=== PATIENT | female | born 1950 | race Caucasian/White ===

== ENCOUNTER 2023-11-02 08:06 | Inpatient (IN) | payer MEDICARE, OTHER, SELFPAY ==
--- NOTE | 2023-10-20 11:28 | CM ---
Patient is scheduled for an elective L TKR on 11/02/23. Spoke with patient prior to surgery via telephone. Patient had a L THR and R THR (both in 2020) at [facility]. Reintroduced role of Orthopedic Navigator. Patient reports that she lives
alone in a one story condo. There are no steps to enter and building is elevator accessible. She currently functions independently and uses a rollator. She also has a raised toilet seat, hip kit and shower seat. She had VN services through VN.
PCP is Dr. Srinath Le.
Discussed orthopedic program and post surgical plans. Reviewed anticipated length of stay and that goal is for her to return home at discharge. Also reviewed outpatient PT. Patient is in agreement with tentative plan and but will not have
transportation for outpatient PT. She will again need VN services and is requesting VN (PAC data reviewed). She states that her children will stay with her for a few days.
Patient will complete online education.
Plan: Orthopedic Navigator will remain available to assist with the care of patient and will reassess discharge needs after surgery.
[2023-10-24 06:46] VITALS: BMI 38.5
--- NOTE | 2023-10-24 07:34 | HPS.HSE ---
Family Physician
-
Family Physician: Srinath Le
Chief Complaint
-
Advanced primary osteoarthritis of the left knee.
History of Present Illness
The patient is a 73-year-old female presenting today for advanced primary osteoarthritis of the left knee. The patient previously underwent an uncomplicated right total hip arthroplasty in December 2020 and a left total hip arthroplasty in
February [address] Michael Dejesus. She returns to [facility] today with complaints of significant left knee pain associated with her osteoarthritis. She notes that her current left knee pain is greatly interfering with her activities of
daily living and is overall impacting her quality of life. She has tried and failed multiple conservative treatment measures in the past for her left knee pain. These conservative treatment measures include physical therapy, self-directed
therapeutic exercises, attempted medical management with Tylenol and NSAIDs, and the application of ice and/or heat. Recent x-ray findings of the left knee revealed advanced lateral joint space narrowing of the patellofemoral joint. She was
determined to be in need of a left total knee arthroplasty. She denies any current complaints today such as chest pain, shortness of breath at rest, palpitations, nausea, vomiting, diarrhea, lightheadedness, dizziness, cough, sore throat, or fever.
Medical History
Past Medical History
Past Medical History: Reports Other
Additional Past Medical History:
1. Osteoarthritis, status post right total hip arthroplasty, 12/2020, and left total hip arthroplasty, 02/2021, by Dr. Michael Dejesus.
2. Hypertension.
3. Hyperlipidemia.
4. Obstructive sleep apnea, noncompliant with CPAP.
5. Chronic dyspnea on exertion, secondary to deconditioning.
6. 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
7. GERD.
8. Diverticulosis.
9. Irritable bowel syndrome.
10. Balance difficulties.
11. Migraines.
12. Uterine cancer, >20 years ago, status post hysterectomy.
13. Overactive bladder.
14. Recurrent cellulitis, 11/2022-08/2023, treated with Doxycycline.
15. Anxiety.
16. Depression.
17. Obesity, BMI 38.5.
Past Surgical History: Reports Other
Additional Past Surgical History:
1. Left total hip arthroplasty, 02/2023, by Dr. Michael Dejesus.
2. Right total hip arthroplasty, 12/2020, by Dr. Michael Dejesus.
3. Total abdominal hysterectomy.
4. Partial vulvectomy.
5. Bilateral cataract extraction.
6. Tonsillectomy and adenoidectomy.
Social History
Tobacco: Non-smoker
Alcohol: Other (Rare. )
Living: Alone (in a 1 story condo. She will be staying at her daughter's home for 3 days post-operatively. )
Family History
Family History: Not pertinent
Allergies / Home Medications
Allergy/Medication List:
MEDICATIONS:
1. Wanda 1 capsule p.o. daily.
2. Meloxicam 15 mg p.o. daily.
3. Simvastatin 10 mg p.o. at bedtime.
4. Centrum Silver multivitamin one tablet p.o. daily.
5. Metformin 500 mg p.o. twice a day.
6. Losartan/Hydrochlorothiazide 100/25 mg p.o. daily.
7. Lansoprazole 15 mg p.o. daily.
8. Probiotic one tablet p.o. daily.
9. Escitalopram Oxalate 10 mg p.o. daily.
10. Cholecalciferol 1000 units p.o. daily.
11. Calcium citrate 600 mg p.o. daily.
12. Aller-Jayson two sprays nasal every evening.
ALLERGIES: Ciprofloxacin. Dipyridamole.
Review of Systems
-
A 12 point ROS was completed and negative except as noted: Yes
Physical Exam
Vital Signs
Blood pressure 122/64. Heart rate 70. Respirations 18. Pulse ox 95%.
Height 5 feet, 4.5 inches. Weight 103.3 kg. BMI 38.5.
Physical Exam
General: Well Developed, Well Nourished and No Apparent Distress
HEENT: NormoCephalic, Moist mucous membranes, Atraumatic and PERRLA
Respiratory: Clear
Cardiac: Regular Rhythm
GI: Soft, Non Tender, Non Distended and Other (Obese. )
Musculoskeletal: Other (Left knee and lower extremity: Valgus alignment. Mild effusion. Range of motion 0-130. Tenderness to palpation of medial tibial surface. Able to preform straight left raise. )
Skin: Warm and Dry
Neuro: AO x 3 and No Motor Deficits
Laboratory Results
-
DIAGNOSTIC STUDIES as of 10/24/2023: White blood cell count 7.7. Hemoglobin 13.6. Platelet count 255,000. Sodium 139. Potassium 4.4. BUN 21.Creatinine 0.8. Glucose 134. Hemoglobin A1c 6.3. Calcium 10.2. AST 28. ALT 19. Albumin 4.2. MRSA nasal screen
negative.
EKG 10/24/2023: Normal sinus rhythm. Compared to the prior EKG of 12/12/2020, no significant change was found.
Impression/Plan
-
CLEARANCES:
1. Primary medical, Dr. Srinath Le, cleared.
Primary medical phone number: [phone].
2. Dental waived.
IMPRESSION/PLAN:
1. Advanced primary osteoarthritis of the left knee in need of a left total knee arthroplasty by Dr. Michael Dejesus on 11/02/2023. The benefits and risks of the procedure have been explained to the patient. The patient understands these risks and
wishes to proceed.
2. DVT prophylaxis: Aspirin with bilateral venous compression devices.
3. Pain management: We will utilize Tramadol for moderate to severe post-operative pain and Meloxicam. The patient tolerated this medication regimen well with her prior right and left total hip arthroplasty. Pain medications will be adjusted as
indicated.
4. Balance difficulties: The patient will be placed on fall precautions post-operatively.
Patient's home phone number: [phone].
Patient's cell phone number: [phone].
Patient's contact (Meseret Jett - Daughter): [phone] (H); [phone] (C).
[2023-10-24 09:10] LABS: Hematocrit 40.6 % (37.0-47.0); Hemoglobin 13.6 g/dL (12.0-16.0); Mean Corp Hgb Conc. 33.5 g/dL (33.0-37.0); Mean Corpuscular Hgb 31.9 pg (27.0-31.0); Mean Corpuscular Volume 95.3 fL (81.0-99.0); Mean Platelet Volume 10.5 fL (7.4-10.4); Platelet Count 255 10^3/uL (130-400); Red Blood Cell Count 4.26 10^6/uL (4.20-5.40); Red Cell Dist. Width 13.4 % (11.5-14.5); White Blood Cell Count 7.7 10^3/uL (4.8-10.8)
[2023-10-24 09:31] LABS: AST (SGOT) 28 U/L (14-36); Albumin 4.2 g/dl (3.5-5.0); Blood Urea Nitrogen 21 mg/dl (7-17); Calcium 10.2 mg/dl (8.4-10.2); Carbon Dioxide 28 mmol/L (22-30); Estimated Creatinine Clearance 72 ml/min; Glucose 134 mg/dl (70-99); Potassium 4.4 mmol/L (3.5-5.1); Total Bilirubin 0.6 mg/dl (0.2-1.3); Total Protein 6.7 g/dl (6.3-8.2); eGFR > 60.00
[2023-10-24 09:39] LABS: ALT (SGPT) 19 U/L (0-35); Alkaline Phosphatase 67 U/L (38-126); Chloride 100 mmol/L (98-107); Sodium 139 mmol/L (135-145)
[2023-10-24 12:10] LABS: Glycohemoglobin (HgbA1c) 6.3 % (4.0-5.6)
[2023-10-24 15:15] VITALS: BMI 38.5
[2023-11-02] VITALS (14 sets, daily range): BP systolic 111–144; BP diastolic 45–86; BMI 38.5
[2023-11-02 09:20] LABS: Glucose - Point of Care 120 mg/dl (70-99)
[2023-11-02] MEDS: CELEBREX 200 MG PO (09:22)
[2023-11-02] MEDS: TYLENOL 650 MG PO ×3 (09:23→20:10)
[2023-11-02] MEDS: NORMOSOL-R 1000 IV ×2 (09:23→14:08)
--- NOTE | 2023-11-02 12:45 | OR.RPT ---
Operative Report
Operative Report
Orthopaedic Surgery Operative Note
DATE OF OPERATION: 11/02/2023
PREOPERATIVE DIAGNOSES: Osteoarthritis, left knee.
POSTOPERATIVE DIAGNOSES: Osteoarthritis, left knee.
OPERATION PERFORMED:
1) Left total knee arthroplasty (CPT 34691 with 22 modifier)
2) Intraosseous administration of analgesic (CPT 59535)
SURGEON: Michael Dejesus MD
ASSISTANTS: Bailee Ramirez PA-C who helped with patient and limb positioning and retraction
ANESTHESIA: Spinal by anesthesia plus intraoperative infusion of morphine into the tibial metaphysis by Dr. Dejesus
COMPLICATIONS: None.
ESTIMATED BLOOD LOSS: 20mL
DRAINS: None
TOURNIQUET TIME: 51 minutes.
IMPLANTS:
- Lary Persona CR Femur, size 10
- Lary Persona tibia base plate, size E
- Lary Persona tibial stem, 40mm
- Lary Persona ultracongruent articular surface, 12 mm
- All-polyethylene patellar component, size 32
- DJO Irwin bone cement
INDICATIONS: The patient presented to my office with debilitating left knee pain due to osteoarthritis. We reviewed the natural history of this problem, as well as the risks, benefits, and alternatives of various treatment options. The patient
exhausted all nonoperative treatment options and wished to proceed with knee replacement surgery. The patient understood the risks which included, but were not limited to, bleeding, infection, failure to relieve pain, more pain than preop, damage to
blood vessels and nerves, need for reoperation, mechanical failure of the implants, wound healing problems, stiffness, instability, blood clot, pulmonary embolism, myocardial infarction, pneumonia, arrhythmia, CVA, and . The patient accepted
these risks and wished to proceed. All questions were answered, and informed consent was obtained.
PROCEDURE IN DETAIL: The patient was identified in the preoperative holding area. The left knee was identified as the operative site. The patient was taken in the operating room and placed in a supine position on the operating table. Spinal/General
anesthesia was performed. IV antibiotics and tranexamic acid were administered. An SCD was placed on the right lower extremity. A well-padded tourniquet was placed on the proximal thigh. All bony prominences were well padded. The left lower
extremity was prepped and draped in the usual sterile fashion.
We performed a surgical time-out. An interarticular block was performed with local anesthetic with epinephrine. I performed interosseous administration of morphine-saline solution via a Jamshidi style intraosseous needle into the proximal medial
tibial metaphysis as described by Víctor Arboleda MD. This was performed to aid in pain control. The limb was exsanguinated with an Esmarch bandage, then the tourniquet was inflated to 250 mmHg. A midline skin incision was made followed by a medial
parapatellar arthrotomy. A subperiosteal peel was performed on the medial tibia. I excised part of the infrapatellar fat pad to improve our visualization as well as tissue over anterior femur. The patella was everted and the knee was flexed. I
excised the remnants of the anterior and posterior cruciate ligaments as well as tibial and femoral osteophytes with rongeurs.
The knee was flexed, and the extramedullary tibial cutting guide was aligned. [place] was aligned at neutral, rotation was centered on the tibial tubercle, and coronal alignment was aligned with the mechanical axis of the tibia and center of the ankle
joint. The cut height was 10mm off the lateral tibia joint surface. The guide was secured into place. The MCL and LCL were protected. The tibia surface was cut. The cut surface was inspected after removal to ensure appropriate height and slope based
on the preoperative plan. The cut was checked with a drop francisco. It was centered nicely at the ankle.
A drill was used to open the femoral canal. The intramedullary distal femoral cutting guide was inserted into the femur. This was set at 5 degrees +0. This was secured into place with three pins. The cut level was checked with an elena wing. The
distal femur was cut through the cutting guide. The IM guide was reinserted to double check that the level of resection was flush and in appropriate alignment.
Clinton�s line and the transepicondylar axis were marked on the femur. The femoral sizing guide was applied to the anterior femur. Pins were inserted, and the 4-in-1 cutting guide was applied and secured into place. The rotation was compared to
Clinton�s line, the transepicondylar axis, and the neutral tibia cut and was found to be appropriate. The width was checked and found to be appropriate and lateralized on the femur. The anterior, posterior, and chamfur cuts were made. A lamina
community service organization director was used to open the flexion gap, and posterior osteophytes were removed with a curved osteotome. The remnant medial and lateral meniscus were also removed. I prophylactically cauterized the lateral geniculate arteries. A 10mm spacer block
was applied to the flexion gap and was noted to be balanced medially and laterally. The knee was extended, and the block showed symmetric to extension and flexion gaps.
The tibia was exposed and sized. Rotation was set in line with the tibial tubercle and congruent with the femur. The trial was secured into place with two pins. The trial femur was impacted into place, and a trial articular surface was placed. The
knee was taken through range of motion and noted to be stable throughout the arc of motion without gaping or excess tension. In extension, a measured resection of the patella was performed. The patella was sized, and lug holes were drilled. A trial
patella component was applied, and it was noted to track centrally throughout the arc of motion without need for further releases.
The trials were removed. The tibia keel was prepared with the punch and the drill. The bone surfaces were irrigated with sterile saline and dried. The cement was mixed in a vacuum mixer. Cement gun was used to apply cement to the tibial surface and
the undersurface of the tibial implant. Cement was pressurized into the tibial canal and tibia surface. The tibial component was impacted into place. Excess cement was removed. Cement was applied to the femoral surface and the femoral component. The
femoral component was impacted into place, and excess cement removed. A trial articular surface was inserted, and the knee was extended while the cement polymerized. The tourniquet was let down, and meticulous hemostasis was achieved. Dilute
betadine was poured into the wound and allowed to soak for 3 minutes. The knee was irrigated with copious normal saline.
Once the cement was polymerized, the trial articular surface was removed. Any excess cement was removed. The knee was trialed, and the final articular surface was selected and inserted into the tibial locking mechanism. The knee was reduced. A fresh
drape was applied to the surgical field.
The arthrotomy was closed with 0-PDS. Once closed, an interarticular block was performed with local anesthetic with epi. The deep dermal layer was closed with 2-0 PDS, and the subcuticular skin was closed with 3-0 monocryl. A Dermabond Prineo
dressing was applied to the skin in full flexion. Once this was completely dry, a sterile waterproof dressing was applied.
The anesthesia team performed an adductor canal block in the OR. The patient awoke from anesthesia without any difficulties. The sponge and instrument counts were correct x2 at the end of the case.
Of note, 22 modifer was added for complexity due to BMI >35 kg/m2 which added 20 additional minutes for positioning, exposure, and implanting the components.
Aditya Dejesus MD
[2023-11-02 13:15] LABS: Glucose - Point of Care 142 mg/dl (70-99)
[2023-11-02] MEDS: ULTRAM 50 MG PO (13:49)
[2023-11-02] MEDS: DILAUDID 0.25 MG IV (14:17)
--- NOTE | 2023-11-02 14:18 | W.PN.UPDATE ---
Update Note
Progress Note Update
L knee OA s/p L TKA w/ Dr Dejesus 11/02/23
- s/p R MIRIAM, 12/2020, and L MIRIAM, 02/2021, by Dr Dejesus
DVT prophylaxis - ASA, b/l venous foot pumps
HTN - + parameters - monitor BP
SPARKLE, noncompliant with CPAP, and chronic PAUL, secondary to deconditioning - monitor O2
- IS
- Add supplemental O2 HS
Non-insulin dependent diabetes with neuropathy, A1c 6.3 - monitor BS
- Resume Metformin
- SSI AC during admission
GERD - continue PPI therapy
Balance difficulties - on fall precautions
Hyperlipidemia
Diverticulosis
Irritable bowel syndrome
Migraines
Uterine cancer, >20 years ago, status post hysterectomy
Overactive bladder
Recurrent cellulitis, 11/2022-08/2023, treated with Doxycycline
Anxiety
Depression
Obesity, BMI 38.5
--- NOTE | 2023-11-02 15:00 | PTCARENOTE ---
Patient received from PACU in bed; IVF infusing; Surgical site assessed with AXLE TURNER; Left knee mepilex clean, dry, and intact; Bilateral pedal pulses +2; Patient denies numbness and/or tingling to lower extremities; Patient states pain is a four
out of ten and is tolerable for her; Denies nausea/vomiting; Bed in lowest position, wheels locked; Call fernandez within reach; Daughter at bedside; Assessment ongoing
[2023-11-02] MEDS: HYZAAR 100-25 TABLET PO (15:07)
[2023-11-02] MEDS: NOVOLOG FLEXPEN-MODERATE RESISTANCE SC (15:08)
[2023-11-02] MEDS: PROTONIX 40 MG PO (15:38)
[2023-11-02 15:56] LABS: Glucose - Point of Care 180 mg/dl (70-99)
[2023-11-02] MEDS: NOVOLOG FLEXPEN-MODERATE RESISTANCE 1 UNITS SC (15:56)
[2023-11-02] MEDS: VITAMIN D3 (cholecalciferol) 25 MCG PO (15:56)
[2023-11-02] MEDS: LEXAPRO 10 MG PO (15:57)
[2023-11-02] MEDS: VISBIOME 1 CAP PO (15:57)
[2023-11-02] MEDS: GLUCOPHAGE 500 MG PO (16:00)
[2023-11-02] MEDS: ASPIRIN 325 MG PO (17:23)
[2023-11-02] MEDS: ANCEF 5 IV (18:20)
[2023-11-02] MEDS: TORADOL 10 MG IV (20:10)
[2023-11-02] MEDS: BACTROBAN 2% OINTMENT 1 APPLIC NASAL (21:00)
[2023-11-02 21:45] LABS: Glucose - Point of Care 181 mg/dl (70-99)
[2023-11-02] MEDS: LIPITOR 10 MG PO (22:40)
[2023-11-03] MEDS: TYLENOL PO ×2 (00:35→04:57)
[2023-11-03] MEDS: TYLENOL 650 MG PO ×3 (00:51→11:17)
[2023-11-03] MEDS: ANCEF 5 IV (02:10)
[2023-11-03 03:00] VITALS: BP 153/68
--- NOTE | 2023-11-03 03:20 | PTCARENOTE ---
Patient was able to ambulate w RW and assist x1 to toilet without any issues. No c/o pain after ambulation. Assessment ongoing.
[2023-11-03] MEDS: NOVOLOG FLEXPEN-MODERATE RESISTANCE SC (07:22)
[2023-11-03 07:23] LABS: Glucose - Point of Care 148 mg/dl (70-99)
[2023-11-03] MEDS: GLUCOPHAGE 500 MG PO (07:38)
[2023-11-03] MEDS: MOBIC 15 MG PO (07:38)
[2023-11-03] MEDS: VISBIOME 1 CAP PO (07:38)
[2023-11-03] MEDS: VITAMIN D3 (cholecalciferol) 25 MCG PO (07:38)
[2023-11-03] MEDS: ASPIRIN 325 MG PO (07:38)
[2023-11-03] MEDS: LEXAPRO 10 MG PO (07:38)
[2023-11-03] MEDS: PROTONIX 40 MG PO (07:38)
[2023-11-03] MEDS: HYZAAR 100-25 TABLET 1 TAB PO (07:39)
[2023-11-03] MEDS: BACTROBAN 2% OINTMENT 1 APPLIC NASAL (07:40)
[2023-11-03] MEDS: ULTRAM 50 MG PO ×2 (07:44→12:07)
[2023-11-03 08:00] VITALS: BP 131/78
--- NOTE | 2023-11-03 08:49 | CM ---
Addendum entered by Sarah Marks 11/03/23 09:42:
[place] text received from Dr. Dejesus that patient can wait until Tuesday, 11/06 to begin VN services.
Original Note:
Reviewed chart and held rounds with PT, OT and nursing. Patient admitted as planned for elective L TKR. Met with patient at bedside. Confirmed information previously obtained for assessment. Also discussed discharge plans. Patient will be going to
her daughter's home until Tuesday (she will have a first floor set up with one step to enter). She will have support from multiple family members. Reviewed VN services including start of care (tentatively 11/03), services to be ordered (PT, SN, TRANSPORTATION WORKER)
and frequency/duration of services. Options list provided and PAC data reviewed. Patient selects VN. Explained to patient that VN does not go to [place] where her daughter lives. Patient requested that start of care be deferred until Tuesday,
11/06. Africa Shannon, PAC updated and in agreement. [place] text sent to Dr. Dejesus with update.
Patient has all needed DME at home.
VN referral was completed and sent to [facility] through [employer] with request for start of care on 11/06. Confirmation received of their ability to accept case. hospital television rental clerk to fax discharge instructions to [facility] when complete.
Patient will use [facility] pharmacy for discharge prescriptions.
[2023-11-03 11:15] VITALS: BP 117/68; PULSE 73; O2SAT 93
[2023-11-03 11:35] VITALS: BP 138/60
--- NOTE | 2023-11-03 12:03 | W.PN.ORTHO ---
Today's Communication / Plan
-
Await PT and OT recs.
D/c later today if remaining clinically stable.
Assessment
.
Distal Motor Intact: Yes
Dressing:
Clean, dry and intact.
Assessment:
L knee OA s/p L TKA w/ Dr Dejesus 11/02/23
- s/p R MIRIAM, 12/2020, and L MIRIAM, 02/2021, by Dr Dejesus
DVT prophylaxis - ASA, b/l venous foot pumps
HTN - + parameters - BPs stable
SPARKLE, noncompliant with CPAP, and chronic PAUL, secondary to deconditioning - O2 stable on RA by POD 1
- IS
- Added supplemental O2 HS during admission
Non-insulin dependent diabetes with neuropathy, A1c 6.3 - BS readings overall stable w/ resumption of home Metformin, minimal SSI AC during admission
GERD - continue PPI therapy
Balance difficulties - on fall precautions
Hyperlipidemia
Diverticulosis
Irritable bowel syndrome
Migraines
Uterine cancer, >20 years ago, status post hysterectomy
Overactive bladder
Recurrent cellulitis, 11/2022-08/2023, treated with Doxycycline
Anxiety
Depression
Obesity, BMI 38.5
Plan
.
Surgery / Date: L TKA w/ Dr Dejesus 11/02/23
DVT Prophylaxis: Aspirin
Activity:
Out of bed.
PT/OT
Discharge Plan: Home w/ VN
Subjective
.
.:
Patient resting comfortably in her chair this AM.
L knee pain overall well controlled w/ Tramadol as needed. Oxycodone not taken.
Denies any new significant complaints.
Eager for potential d/c today.
Vital Signs and Labs
.
Vital Signs and Labs:
Lab Results
10/24/23 06:38
10/24/23 06:38
Temp Pulse Resp BP Pulse Ox
98.6 F 73 17 138/60 95
11/03/23 11:35 11/03/23 11:35 11/03/23 11:35 11/03/23 11:35 11/03/23 11:35
Non-invasive Hgb result: 13
Physical Exam
-
HEENT: No pallor, cyanosis, or jaundice. Throat clear.
NECK: Supple. No JVD.
RESPIRATORY: Lungs clear to auscultation.
CVS: S1, S2 normal. RRR.�
ABDOMEN: Soft, non-tender. No distension. Obese.
EXTREMITIES: Post-surgical L knee edema. Strength equal, no calf pain with palpation/dorsiflexion. Calves soft.
CHORE WORKER: AOx3. No focal deficits. remarketing rep grossly intact
--- NOTE | 2023-11-03 12:21 | W.DS.TRANS ---
DC Summary - Vocal Music Teacher
-
Discharge Instructions:
Sleep Apnea Risk Intermediate
Discharge Diagnosis/Procedures L knee OA s/p L TKA w/ Dr Dejesus 11/02/23
Diet Diabetic, Carb Controlled
Activity As tolerated,With Walker
Driving Restrictions Not until seen by your Dr
Bathing Restrictions OK to Shower
Other Services VN,PT
Wound Care Leave dressing on until seen by surgeon's office
for follow-up in 2 weeks.
Instructions:
Stand-Alone Forms: Total Hip/Knee Replacement D/C
Changes to Home Medications: Yes
Discharge Medications:
DC Medications w/original date entered in [employer]
escitalopram oxalate 10 mg tablet 10 mg PO DAILY Depression 12/10/20
metformin 500 mg tablet 500 mg PO BID Diabetes 12/10/20
qrutabnn-try-avfom acid 0.4 mg-lycopene 300 mcg-lutein 250 mcg tablet (Centrum Silver) 1 ea PO DAILY Supplement 12/10/20
simvastatin 10 mg tablet 10 mg PO HS High cholesterol 12/10/20
Allerflo 2 spray intranasal QPM Congestion 12/12/20
L.acidoph, paracasei,B. lactis 10 billion cell capsule 1 ea PO DAILY probiotic 12/12/20
calcium citrate 200 mg (950 mg) tablet 600 mg PO DAILY Supplement 12/12/20
cholecalciferol (vitamin D3) 25 mcg (1,000 unit) tablet 1,000 units PO DAILY Supplement 12/12/20
lansoprazole 15 mg delayed release,disintegrating tablet 15 mg PO DAILY Gastrointestinal issue 12/12/20
Wanda 1 cap PO DAILY 10/21/23
mupirocin 2 % topical ointment 1 applic intranasal BID #1 tube 10/24/23
acetaminophen 500 mg tablet (Tylenol Extra Strength) 1,000 mg (2 x 500 mg) PO Q6H #60 tabs 11/03/23
aspirin 325 mg tablet 325 mg PO DAILY #30 tabs 11/03/23
docusate sodium 100 mg capsule 100 mg PO BID #30 caps 11/03/23
losartan 100 mg-hydrochlorothiazide 25 mg tablet 1 tab PO DAILY #0 tabs 11/03/23
meloxicam 15 mg tablet 15 mg PO DAILY #30 tabs 11/03/23
prochlorperazine maleate 5 mg tablet 5 mg PO Q8H PRN nausea and vomiting #30 tabs 11/03/23
sennosides 8.6 mg tablet (Senna Laxative) 17.2 mg (2 x 8.6 mg) PO BID #30 tabs 11/03/23
tramadol 50 mg tablet 50 mg PO Q6H PRN moderate-severe pain #30 tabs 11/03/23
Home Medication Changes
acetaminophen 500 mg tablet (Tylenol Extra Strength) 1,000 mg (2 x 500 mg) PO Q6H #60 tabs 11/03/23
aspirin 325 mg tablet 325 mg PO DAILY #30 tabs 11/03/23
docusate sodium 100 mg capsule 100 mg PO BID #30 caps 11/03/23
meloxicam 15 mg tablet 15 mg PO DAILY #30 tabs 11/03/23
prochlorperazine maleate 5 mg tablet 5 mg PO Q8H PRN nausea and vomiting #30 tabs 11/03/23
sennosides 8.6 mg tablet (Senna Laxative) 17.2 mg (2 x 8.6 mg) PO BID #30 tabs 11/03/23
tramadol 50 mg tablet 50 mg PO Q6H PRN moderate-severe pain #30 tabs 11/03/23
Pending Results: Yes (Hep C antibody)
[2023-11-03 19:12] LABS: Hepatitis C Antibody Negative (Negative)
== END 2023-11-03 13:19 | disposition home health service (06) | DRG 470 ==
LOC: 2 SOUTH 08:06
PROVIDERS: ADMITTING PHYSICIAN Orthopaedic Surgery; FAMILY PHYSICIAN Family Medicine
PROC: 0SRD0J9 Replacement of Left Knee Joint with Synthetic Substitute, Cemented, Open Approach (ICD-10-PCS; 2023-11-02)
DX: M17.12 Unilateral primary osteoarthritis, left knee (principal); I10 Essential (primary) hypertension; E78.5 Hyperlipidemia, unspecified; G47.33 Obstructive sleep apnea (adult) (pediatric); E11.40 Type 2 diabetes mellitus with diabetic neuropathy, unspecified; K21.9 Gastro-esophageal reflux disease without esophagitis; G43.909 Migraine, unspecified, not intractable, without status migrainosus; N32.81 Overactive bladder; F41.9 Anxiety disorder, unspecified; R06.09 Other forms of dyspnea; F32.A Depression, unspecified; E66.9 Obesity, unspecified; Z68.38 Body mass index [BMI] 38.0-38.9, adult; Z96.643 Presence of artificial hip joint, bilateral; Z79.84 Long term (current) use of oral hypoglycemic drugs; Z91.199 Patient's noncompliance with other medical treatment and regimen due to unspecified reason
CPT/HCPCS: 73560; 80053; 82962; 83036; 85027; 86803; 87070; 93005; 97110; 97116; 97162; 97166; 97530; 97535

== ENCOUNTER 2025-05-11 23:11 | Emergency (ER) | payer MEDICARE, OTHER, SELFPAY ==
[2025-05-11 23:23] VITALS: BP 170/93
[2025-05-12 00:24] LABS: ALT (SGPT) 26 U/L (0-35); AST (SGOT) 29 U/L (14-36); Albumin 4.2 g/dl (3.5-5.0); Alkaline Phosphatase 74 U/L (38-126); Blood Urea Nitrogen 27 mg/dl (7-17); Calcium 9.6 mg/dl (8.4-10.2); Carbon Dioxide 28 mmol/L (22-30); Chloride 103 mmol/L (98-107); Glucose 136 mg/dl (70-99); Potassium 4.5 mmol/L (3.5-5.1); Sodium 138 mmol/L (135-145); Total Protein 6.8 g/dl (6.3-8.2); eGFR > 60.00
[2025-05-12 00:37] LABS: Troponin I < 0.012 ng/ml
[2025-05-12 02:58] VITALS: BP 137/66
[2025-05-12 03:00] VITALS: BP 122/67
[2025-05-12 03:03] VITALS: BMI 39.0
[2025-05-12 03:16] LABS: Hematocrit 40.6 % (37.0-47.0); Hemoglobin 13.8 g/dL (12.0-16.0); Mean Corp Hgb Conc. 34.0 g/dL (33.0-37.0); Mean Corpuscular Volume 92.9 fL (81.0-99.0); Nucleated Red Blood Cells % 0 %; Platelet Count 224 10^3/uL (130-400); Red Cell Dist. Width 12.6 % (11.5-14.5)
--- NOTE | 2025-05-12 03:44 | ED.GENMED ---
History of Present Illness
General
Chief Complaint: Chest Pain
Source: patient
Time Seen by Provider: 05/12/25 03:37
History of Present Illness
History of Present Illness:
This patient is a 75-year-old female who presents emergency department with 3 to 4-day history of indigestion and belching. She denies associated anorexia, abdominal pain, vomiting, fever, chills. Today, she got particularly concerned because she
developed about a 15-minute period of 'irregular heartbeat' associated with chest 'tightness'. This spontaneously resolved and she is now asymptomatic. She has had mild nausea over the last few days. She denies back pain, urinary symptoms, new
dyspnea, cough, sore throat, rhinorrhea, or other complaints.
Past History
Past History
ED Past Medical History: Other (Diabetes, hypertension, hypercholesterolemia, reflux, uterine cancer)
ED Past Surgical History: Gynecological and Tonsilectomy
Social History
Tobacco: Non-smoker
Alcohol: Occasional
Drug: None
Living: alone
Phy Exam
Physical Exam
Physical Exam:
GENERAL: Alert , in no apparent distress
EYE: pupils equal and reactive
NECK: Supple, no significant adenopathy.
ENT: o/p clr, mmm.
CARDIAC: Regular rate and rhythm .
LUNGS: Clear breath sounds bilaterally, no acute respiratory distress, no wheezes/rales/rhonchi
ABDOMEN: Soft, without focal tenderness, no r/g, no cvat
NEUROLOGICAL: Alert and oriented, no focal neuro deficits
SKIN: Warm and dry, skin intact.
MUSCULOSKELETAL: No edema, well perfused.
PSYCH: Normal and appropriate interaction.
Scores
Heart Score for Chest Pain Patients
STEMI patient?: Not applicable
Course
Orders/Labs/Results
Orders:
Orders
05/11/25 23:13
Electrocardiogram (*1) Urgent
Reason for Study: Other
Other Reason for Exam: Respiratory Distress
Cardiac Monitoring- Treatment ONCE
EKG- Treatment ONCE
IV Insert/Care/Rem.- Treatment PRN
Comprehensive Metabolic Panel Urgent
NT-proBNP Urgent
Troponin I Urgent
O2 Therapy [RESP] Urgent
Titrate/Wean O2 to maintain O2 sat greater than (%): 93
Special Instructions: TO MAINTAIN CONTINUOUS O2 SATS >/= 93%
Pulse Ox/cont/shift [RESP] Urgent
Quantity: 1
Special Instructions: continuous pulse ox
05/12/25 00:10
CR Chest - 2 Views Urgent
Reason For Exam: respiratory distress
05/12/25 03:02
Complete Blood Count/With Diff Urgent
Troponin I Urgent
Abnormal Lab Results
05/12/25 05/12/25
00:02 03:02
WBC 11.0 H 10^3/uL
(4.8-10.8)
MCH 31.6 H pg
(27.0-31.0)
Absolute Neuts (auto) 6.8 H 10^3/uL
(1.4-6.5)
Absolute Monos (auto) 0.9 H 10^3/uL
(0.1-0.6)
BUN 27 H mg/dl
(7-17)
Glucose 136 H mg/dl
(70-99)
05/12/25 03:02
05/12/25 00:02
Vital Signs
Initial and Last Documented VS:
Initial Vital Signs
Temp Pulse Resp BP Pulse Ox
97.6 F 70 20 170/93 95
05/11/25 23:23 05/11/25 23:23 05/11/25 23:23 05/11/25 23:23 05/11/25 23:23
Last Documented Vital Signs
Temp Pulse Resp BP Pulse Ox
97.6 F 61 17 118/55 91
05/11/25 23:23 05/12/25 04:00 05/12/25 04:00 05/12/25 04:00 05/12/25 04:00
*Pulse Oximetry
SaO2: 95
Oxygen Mode of Delivery: Room air
Patient hypoxic: no
*Critical Care Note
Total Time (30-74mins, 75-104mins- exclusive of procedures): Not Applicable
Update Note
Update Note:
Patient presents to the Emergency Department with ___palpitations and chest discomfort
Number and Complexity of Problems Addressed at the Encounter
� Chronic conditions affecting care:
� Acute Exacerbation and/or Progression of Chronic Illness:
� Differential Diagnosis includes: But not limited to SVT, PVCs, A-fib, a flutter, ACS, PE, electrolyte disorder, etc. etc.
Amount and/or Complexity of Data to be Reviewed and Analyzed
� I performed an independent evaluation of and my interpretation is:
EKG: Read by me, normal sinus rhythm, normal rate, normal axis, no acute ischemia
CT:
Xrays: Read by me, NAD, no cardiomegaly, no effusion
Laboratory Studies: Generally unremarkable, minimal nonspecific white blood cell count elevation
Other:
� Review of other/old records reveals:
� Clinical information was obtained by an independent historian:
� Prescriptions/Medications Considered but not given:
� Further testing considered but not performed:
Risk of Complications and/or Morbidity or Mortality of Patient Management
� Social determinants of health affecting care:
� Discussion with other providers (PCP, Hospitalists, Consultants, etc):
� Escalation of care including admission/observation vs risk of discharge considered: Patient with palpitations and chest tightness, now pain-free. Repeat troponin pending. Highly doubt ACS given nonspecific/atypical symptoms
and unremarkable ECG and first troponin. Patient may have had a benign arrhythmia/PVCs, no evidence of rhythm disturbance at this time. Highly doubt PE as patient denies risk factors such as smoking, recent immobilization, recent trauma, leg
swelling, family history, etc. etc. Patient denies pleuritic chest pain or dyspnea. Patient will likely be stable for discharge with close cardiology follow-up.
ED Attending Note
-
Portions of this chart may have been created with voice recognition software.� Occasional wrong word or��sound alike� substitutions may have occurred due to the inherent limitations of voice recognition software.
Discharge Plan
Departure
Patient Disposition: Home (Routine Discharge)
Patient with high blood pressure during this ER visit?: Yes
Condition: Good
Discharge Problem:
Chest pain, Heart palpitations
Instructions: Palpitations, Chest Pain NON-[facility] F[employer] Access[employer] Maker Follow Up, BLOOD PRESSURE
Prescriptions:
No Action
metformin 500 MG tablet
500 mg PO BID
simvastatin 10 MG tablet
10 mg PO HS
escitalopram oxalate 10 MG tablet
10 mg PO DAILY
Centrum Silver 1 EACH tablet
1 ea PO DAILY
Allerflo
2 spray intranasal QPM
calcium citrate 200 MG tablet
600 mg PO DAILY
lansoprazole 15 MG tablet,disintegrat, delay rel
15 mg PO DAILY
cholecalciferol (vitamin D3) 1,000 UNITS tablet
1,000 units PO DAILY
L.acidoph,paracasei,B.animalis 1 EACH capsule
1 ea PO DAILY
Wanda
1 cap PO DAILY
mupirocin 2 % ointment
1 applic intranasal BID Qty: 1 0RF
Rx Instructions:
Already has previously.
aspirin 325 mg Tablet
325 mg PO DAILY Qty: 30 0RF
Rx Instructions:
Take daily x4 weeks for blood clot prevention.
prochlorperazine maleate 5 mg Tablet
5 mg PO Q8H PRN (Reason: nausea and vomiting) Qty: 30 0RF
docusate sodium 100 mg Capsule
100 mg PO BID Qty: 30 0RF
meloxicam 15 mg Tablet
15 mg PO DAILY Qty: 30 0RF
Rx Instructions:
Take with food.
DO NOT take within 2 hours of Aspirin.
sennosides [Senna Laxative] 8.6 mg Tablet
17.2 mg PO BID Qty: 30 0RF
acetaminophen [Tylenol Extra Strength] 500 mg tablet
1,000 mg PO Q6H Qty: 60 0RF
Rx Instructions:
DO NOT exceed >4000 mg daily.
tramadol 50 mg tablet
50 mg PO Q6H MDD 6 PRN (Reason: moderate-severe pain) Qty: 30 0RF
Rx Instructions:
1 tab for moderate pain, 2 if severe.
Dx total joint
losartan-hydrochlorothiazide 100-25 mg Tablet
1 tab PO DAILY Qty: 0 0RF
Rx Instructions:
HOLD IF systolic blood pressure <130 while on Tramadol.
Activity Restrictions/Additional Instructions:
YOU SHOULD FOLLOW-UP WITH YOUR WET PLANT OPERATOR THIS WEEK. IF YOU DEVELOP RECURRENT CHEST PAIN, ANY SHORTNESS OF BREATH, VOMITING, DIZZINESS, OR OTHER WORRISOME SIGNS, PLEASE RETURN TO THE ER IMMEDIATELY!
Interventions
Interventions:
*General Assessment Last Done: 05/12/25 03:08
*Neglect/Abuse Screening Last Done: 05/11/25 23:27
*ED COVID-19 Vaccine History Last Done: 05/11/25 23:23
*ED Influenza Vaccine History Last Done: 05/12/25 03:07
[facility] Risk Assessment Tool Last Done: 05/11/25 23:23
*Risk Screen - Suicide (C-SSRS) Last Done: 05/11/25 23:23
*Nursing Disposition Last Done: 05/12/25 04:53
ED- Cardiac Assessment Last Done: 05/12/25 03:59
Discharge Date and Time
Discharge Date/Time: 05/12/25 04:53
Print Language: MALAY
[2025-05-12 04:00] VITALS: BP 118/55
[2025-05-12 04:15] LABS: Troponin I < 0.012 ng/ml
== END 2025-05-12 04:53 | disposition home or self-care (01) ==
LOC: EMR 23:11
PROVIDERS: Emergency Medicine; EMERGENCY PHYSICIAN Emergency Medicine
DX: R07.9 Chest pain, unspecified (principal); R00.2 Palpitations; E11.9 Type 2 diabetes mellitus without complications; I10 Essential (primary) hypertension; E78.00 Pure hypercholesterolemia, unspecified; K21.9 Gastro-esophageal reflux disease without esophagitis; Z79.84 Long term (current) use of oral hypoglycemic drugs; Z85.42 Personal history of malignant neoplasm of other parts of uterus
CPT/HCPCS: 99284; 71046; 80053; 83880; 84484; 85025; 93005